=== PATIENT | female | born 1970 | race Caucasian/White ===

== ENCOUNTER 2016-10-12 10:22 | Emergency (ER) | payer OTHER ==
[2016-10-12] MEDS ORDERED: KETOROLAC 60 MG/2 ML VIAL IM ONE (12:14)
== END 2016-10-12 14:24 | disposition home or self-care (01) ==
LOC: ER 10:22
CPT/HCPCS: 36415; 80053; 85025; 85610; 85613; 85652; 85730; 85732; 86141; 87804; 96372